=== PATIENT | female | born 1940 | race Caucasian/White ===

== ENCOUNTER 2022-12-17 15:20 | Observation (INO) ==
[2022-12-17] MEDS ORDERED: Furosemide 40 mg/4 ml IV VIAL IV SLOW PU ONE (15:45)
[2022-12-17 16:01] LABS: ABS Basophils 0.1 10^3/uL (0.0-0.1); ABS Eosinophils 0.5 10^3/uL (0.0-0.5); ABS Lymphocytes 1.7 10^3/uL (1.0-4.8); ABS Monocytes 0.6 10^3/uL (0.0-0.9); ABS Neutrophils 6.1 10^3/uL (1.5-7.6); ABS Nucleated RBC 0.01 10^3/ul; Eosinophil % 5.9 %; Hematocrit 37.7 % (35-45); Hemoglobin 12.9 g/dL (11.5-14.3); Lymphocyte % 18.4 %; Mean Corpuscular Hemoglobin 30.2 pg (27-33); Mean Corpuscular Hgb Conc 34.1 g/dL (31-36); Mean Corpuscular Volume 88.4 fL (80-97); Nucleated Red Blood Cells % 0.1 /100 WBC (0.0-0.4); Platelet Count 239 10^3/uL (150-450); Red Blood Count 4.26 10^6/uL (3.63-4.92); Red Cell Distribution Width 14.3 % (12-17)
[2022-12-17 16:38] LABS: Albumin 4.3 g/dL (3.2-5.2); Calcium 9.2 mg/dL (8.6-10.3); Creatinine, Serum 0.95 mg/dL (0.51-0.95); Globulin 2.2 g/dL (2-4); Potassium 4.3 mmol/L (3.5-5.0); Total Bilirubin 1.1 mg/dL (0.2-1.0); Total Protein 6.5 g/dL (6.4-8.9); eGFR CKD-EPI 59.1 (>60)
[2022-12-17 17:44] LABS: High Sensitivity Troponin 1 Hr 24 pg/mL (<15)
[2022-12-18 06:57] LABS: Creatinine, Serum 1.26 mg/dL (0.51-0.95); Potassium 3.9 mmol/L (3.5-5.0); eGFR CKD-EPI 42.1 (>60)
[2022-12-18] MEDS ORDERED: Furosemide 40 mg/4 ml IV VIAL IV SLOW PU ONE (09:00)
[2022-12-18] MEDS ORDERED: CMCS: Sildenafil (PULMONARY)20mg(NF) PO SCH (09:00)
[2022-12-18 14:13] VITALS: BP 106/62
== END 2022-12-18 18:00 | disposition home or self-care (01) ==
LOC: ED 15:20 → EDHOLD 15:20 → SUATTDRO 22:46 → MEDTELE 12-18 01:30
PROVIDERS: ADMIT Student in an Organized Health Care Education/Training Program; ATTEND Internal Medicine

== ENCOUNTER 2024-01-25 01:50 | Inpatient (IN) ==
[2024-01-25 02:58] LABS: INR 1.76 (0.85-1.14)
[2024-01-25] MEDS: Furosemide 40 mg/4 ml IV VIAL IV SLOW PU ONE (03:12)
[2024-01-25 03:16] LABS: ABS Basophils 0.1 10^3/uL (0.0-0.1); ABS Eosinophils 0.3 10^3/uL (0.0-0.5); ABS Lymphocytes 1.3 10^3/uL (1.0-4.8); ABS Monocytes 0.8 10^3/uL (0.0-0.9); ABS Neutrophils 5.7 10^3/uL (1.5-7.6); ABS Nucleated RBC 0.01 10^3/ul; Eosinophil % 3.2 %; Hemoglobin 15.1 g/dL (11.5-14.3); Lymphocyte % 16.3 %; Mean Corpuscular Hemoglobin 27.6 pg (27-33); Nucleated Red Blood Cells % 0.1 %/100WBC (0.0-0.8); Platelet Count 209 10^3/uL (150-450); Red Blood Count 5.47 10^6/uL (3.63-4.92); Red Cell Distribution Width 16.7 % (12-17); White Blood Count 8.1 10^3/uL (3.8-11.8)
[2024-01-25 03:28] LABS: Albumin/Globulin Ratio 1.8 (1-3); Calcium 9.4 mg/dL (8.6-10.3); Creatinine, Serum 1.77 mg/dL (0.51-0.95); Globulin 2.2 g/dL (2-4); Magnesium 2.5 mg/dL (1.9-2.7); Potassium 4.2 mmol/L (3.5-5.0); Total Bilirubin 1.6 mg/dL (0.2-1.0); Total Protein 6.2 g/dL (6.4-8.9); eGFR CKD-EPI 27.8 (>60)
[2024-01-25 03:35] LABS: Venous Bicarbonate HCO3 13.7 mmol/L (24-28)
[2024-01-25 04:55] LABS: High Sensitivity Troponin 1 Hr 51 pg/mL (<15)
[2024-01-25] MEDS ORDERED: Polyethylene Glycol 3350 17 GM PACKET PO PRN (13:56)
[2024-01-25] MEDS ORDERED: Diphenoxylat/Atrop 2.5-0.025mg TAB PO PRN (13:56)
[2024-01-25] MEDS: CMCS:Sildenafil (PULMONARY)20mg(NF) PO SCH (14:48)
[2024-01-25] MEDS: Mometasone/Formoter 100/5 MDI INH SCH (21:37)
[2024-01-26] MEDS: Morphine ORAL CONCENTRATE 5 MG/0.25 ML ORAL.SYRIN SL PRN (11:47)
[2024-01-28 13:27] VITALS: BP 112/75
[2024-01-29] MEDS: Albuterol HFA INHALER 8 gm MDI INH PRN (22:59)
[2024-01-29] MEDS: Benzocaine/Menthol LOZ MT PRN (22:59)
[2024-01-30] MEDS: Oral Rinse (Biotene)(NF) 237 ML or 473 ML ORAL RINSE BTL SWISH SPIT PRN (14:51)
[2024-01-31] MEDS ORDERED: Morphine ORAL CONCENTRATE 5 MG/0.25 ML ORAL.SYRIN SL PRN (14:25)
[2024-01-31] MEDS: Morphine ORAL CONCENTRATE 5 MG/0.25 ML ORAL.SYRIN SL PRN (15:33)
== END 2024-02-01 04:10 | disposition expired | DRG 189 ==
LOC: EDHOLD 01:50 → ED 01:50 → MED 15:16 → SUATTDRO 01-27 14:19
PROVIDERS: ADMIT Hospitalist; ATTEND Student in an Organized Health Care Education/Training Program